=== PATIENT | male | born 1960 | race Caucasian/White ===

== ENCOUNTER 2021-12-03 21:18 | Emergency (ER) | payer BC, SELFPAY ==
[2021-12-03 21:19] VITALS: BP 140/79; PULSE 67; RESP 18; TEMP 36.6; O2SAT 98; BMI 27.9
--- NOTE | 2021-12-03 23:29 | EX.ED.DYSGE1 ---
HPI History of Present Illness Chief Complaint: Bite Detail of Chief Complaint: Tick bite Informant: patient Onset/Context/Timing Onset: Yesterday Narrative Narrative: Patient states he is out of the ferrell yesterday. Today he noted a tick stuck to his left ribs. He tried to pull it off but the head remained embedded. His tried to did get out with a needle and tweezers but was unsuccessful. He did note some slight redness around the area so came in to be evaluated. [facility] Medical History High cholesterol Home Medications doxycycline monohydrate 100 mg capsule 100 mg PO BID 21 days #42 caps 12/03/21 [Rx Last Taken Unknown] Allergy/AdvReac Type Severity Reaction Status Date / Time No Known Allergies Allergy Verified 12/03/21 21:21 Social History Smoking Status: Current some day smoker tobacco type: cigarettes ROS ROS ED Constitutional Constitutional ED: Denies chills or fever(s) Eyes Eyes: Denies change in vision or discharge from eye(s) ENT ENT ED: Denies discharge from eye(s), rhinorrhea or sore throat Cardiovascular Cardiovascular: Denies chest pain or palpitations Respiratory/Chest Respiratory/Chest: Denies cough or dyspnea Gastrointestinal Gastrointestinal: Denies abdominal pain, diarrhea, nausea or vomiting Genitourinary Genitourinary ED: Denies dysuria Musculoskeletal Musculoskeletal: Denies back pain or extremity pain Integumentary Reports rash; Denies Abrasions Neurologic Neurologic: Denies headache(s) or weakness Psychiatric Psychiatric: Denies anxiety or depression Allergic/Immunologic Allergic/Immunologic ED: Denies lip swelling or urticaria EXAM Physical Exam Const Vital Signs: 12/03/21 21:19 12/03/21 22:57 Temperature 97.8 F Temperature Source Temporal Pulse Rate 67 Respiratory Rate 18 Respiratory Effort Normal Non-Labored Blood Pressure 140/79 H Blood Pressure Mean 99 Pulse Ox 98 Oxygen Delivery Method Room Air Positive well nourished and well developed General Appearance ED: well developed HEENT Reports normocephalic and head/scalp atraumatic Eyes PERRL and EOMs intact bilaterally Neck supple Chest Wall Chest Narrative: Small erythematous lesion to the left ribs with black central portion. Resp normal respiratory effort and clear to auscultation bilaterally Cardio regular rate and regular rhythm GI normal to inspection, nondistended, normoactive bowel sounds Palpation: soft Extremity normal to inspection Neuro oriented x3 and no sensory deficits noted Sensorium / Orientation: alert Motor Exam: strength 5/5 throughout Psych mental status grossly normal MDM MDM MDM Narrative Medical decision making narrative: Tweezer forceps were used to grasp the portions of the embedded head and this was removed. Skin is cleansed. Because he does have erythema around the area already he will be started on doxycycline and Lyme titers will be sent. Discharge Plan Triage Chief Complaint: Bite ED Provider: Brenda Curtis Dx/Rx/DC Orders Clinical Impression: Tick bite Instructions: ED Tick Bite, Abx Tx Prescriptions: New doxycycline monohydrate 100 mg capsule 100 mg PO BID 21 Days Qty: 42 0RF Primary Care Provider: Candelario Franco Referrals: Candelario Franco, [Primary Care Provider] - 1 Week NOT,DEFINED [Non-Staff] - Disposition Disposition: Home, Self Care
[2021-12-03] MEDS: Doxycycline 100 MG CAPSULE PO (23:44)
[2021-12-03 23:58] LABS: Lyme Ab Screen Interpretation REF LAB
[2021-12-05 09:31] LABS: Lyme Scn Total Ab w/Rflx Negative (Negative)
== END 2021-12-03 23:50 | disposition home or self-care (01) ==
PROVIDERS: Emergency Provider Emergency Medicine; PCP Family Medicine; Visit Provider Emergency Medicine
DX: S20.96XA Insect bite (nonvenomous) of unspecified parts of thorax, initial encounter (principal); E78.00 Pure hypercholesterolemia, unspecified; F17.210 Nicotine dependence, cigarettes, uncomplicated; W57.XXXA Bitten or stung by nonvenomous insect and other nonvenomous arthropods, initial encounter
CPT/HCPCS: 36415; 86618; 99283